=== PATIENT | female | born 1995 | race American Indian/Alaskan Native ===

== ENCOUNTER 2022-03-18 17:11 | Emergency (ER) | payer OTHER, MEDICAID ==
[2022-03-18 17:55] VITALS: BP 120/64
[2022-03-18] MEDS ORDERED: CYCLOBENZAPRINE 10 MG TAB PO ONE (19:49)
[2022-03-18] MEDS ORDERED: ACETAMINOPHEN 500 MG TAB PO ONE (19:49)
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
[2022-03-18 21:11] LABS: Bilirubin,Urine NEG (Negative); Blood,Urine NEG (Negative); Color,Urine Straw (Yellow); PH,Urine 7.5 (5.0-7.0); Protein,Urine <15 mg/dL mg/dL (Negative)
[2022-03-18 21:12] LABS: Urobilinogen,Urine < 2.0 mg/dL (<2.0)
== END 2022-03-18 21:28 | disposition home or self-care (01) ==
LOC: ED 17:11
DX: O26.891 Other specified pregnancy related conditions, first trimester (principal); S39.012A Strain of muscle, fascia and tendon of lower back, initial encounter; M62.830 Muscle spasm of back; Z3A.01 Less than 8 weeks gestation of pregnancy; V89.2XXA Person injured in unspecified motor-vehicle accident, traffic, initial encounter; Y93.89 Activity, other specified; Y92.89 Other specified places as the place of occurrence of the external cause; Y99.8 Other external cause status
CPT/HCPCS: 36415; 81001; 84702; 99283

== ENCOUNTER 2022-03-30 21:14 | Emergency (ER) | payer MEDICAID, OTHER ==
[2022-03-30 22:44] VITALS: BP 116/72
[2022-03-31 01:38] LABS: Basophils % (Auto) 0.8 % (0.0-1.8); Eosinophils # (Auto) 0.1 K/mm3 (0.0-0.4); Eosinophils % (Auto) 1.9 % (0.0-4.3); Hematocrit 38.7 % (30.3-42.9); Hemoglobin 12.7 gm/dl (10.1-14.3); Lymphocytes # (Auto) 1.9 K/mm3 (1.2-5.4); Lymphocytes % (Auto) 32.8 % (13.4-35.0); Mean Corpuscular HGB Conc 33 % (30-34); Mean Corpuscular Volume 88 fl (79-97); Monocytes # (Auto) 0.6 K/mm3 (0.0-0.8); Monocytes % (Auto) 10.5 % (0.0-7.3); Platelet Count 210 K/mm3 (140-440); Red Blood Count 4.42 M/mm3 (3.65-5.03); Red Cell Distribution Width 11.6 % (13.2-15.2)
[2022-03-31 02:01] LABS: Alanine Aminotransferase 10 units/L (7-56); Albumin 4.4 g/dL (3.9-5); Blood Urea Nitrogen 11 mg/dL (7-17); Calcium 9.8 mg/dL (8.4-10.2); Hemolysis Index 1
[2022-03-31 02:21] LABS: BUN/Creatinine Ratio 16
[2022-03-31 02:39] LABS: Bilirubin,Urine NEG (Negative); Blood,Urine NEG (Negative); Color,Urine Yellow (Yellow); Urobilinogen,Urine < 2.0 mg/dL (<2.0)
[2022-03-31 02:41] LABS: Mucus,Urine 3+ /HPF
[2022-03-31] MEDS ORDERED: METOCLOPRAMIDE 10 MG/2 ML INJ IV ONE (05:07)
[2022-03-31] MEDS ORDERED: SODIUM CHLORIDE 0.9% 1000 ML 1,000 ML IV ONE (05:07)
[2022-03-31] MEDS ORDERED: diphenhydrAMINE 50 MG/ML VIAL IV ONE (05:07)
--- NOTE | 2022-03-31 05:10 | Emergency Department Report ---
ED Abdominal Pain HPI - General Chief Complaint: Abdominal Pain Stated Complaint: VOMITING,PREG,ABD PAIN,DEHYDRATION Time Seen by Provider: 03/31/22 04:22 Source: patient Mode of arrival: Ambulatory Limitations: No Limitations - History of Present Illness Initial Comments: Patient is a 26-year-old female who is G2, currently 8 weeks who presents for abdominal cramping and nausea vomiting. Patient states she has not seen PROJECT MANAGER/TEAM COACH this . Patient denies vaginal discharge or bleeding. Abdominal cramping this described as 4/10 bilateral lower abdominal cramping. There is no radiation there is no dysuria frequency or urgency. Nausea and vomiting during first trimester is normal for this patient. Current symptoms are relieved by nothing tried. Symptoms are exacerbated by p.o. intake. MD Complaint: abdominal pain - Related Data Home Medications Medication Instructions Recorded Confirmed Last Taken Pnv,Calcium 72/Iron/Folic Acid 1 tab PO DAILY 02/17/15 02/17/15 02/17/15 16:00 [ Vitamin with Low Iron] 1 tab Previous Rx's Medication Instructions Recorded Last Taken Type Acetaminophen [Tylenol] 500 mg PO Q6HR PRN #40 tablet 03/18/22 Unknown Rx Baclofen [Lioresal] 10 mg PO TID #21 tab 03/18/22 Unknown Rx Metoclopramide [Reglan] 10 mg PO TID PRN #30 tab 03/31/22 Unknown Rx diphenhydrAMINE [Benadryl CAP] 25 mg PO Q8HR PRN #30 capsule 03/31/22 Unknown Rx Allergies Allergy/AdvReac Type Severity Reaction Status Date / Time No Known Allergies Allergy Verified 01/08/15 11:06 ED Review of Systems ROS: Stated complaint: VOMITING,PREG,ABD PAIN,DEHYDRATION Other details as noted in HPI Constitutional: denies: chills, fever Eyes: denies: eye pain, eye discharge, vision change ENT: denies: ear pain, throat pain Respiratory: denies: cough, shortness of breath, wheezing Cardiovascular: denies: chest pain, palpitations Endocrine: no symptoms reported Gastrointestinal: abdominal pain, nausea, vomiting. denies: diarrhea, constipation, melena Genitourinary: as per HPI. denies: urgency, dysuria, frequency, hematuria Musculoskeletal: denies: back pain, joint swelling, arthralgia Skin: denies: rash, lesions Neurological: denies: headache, weakness, paresthesias, vertigo Psychiatric: denies: anxiety, depression Hematological/Lymphatic: denies: easy bleeding ED Past Medical Hx - Past Medical History Hx Hypertension: No Hx Congestive Heart Failure: No Hx Diabetes: No Hx Deep Vein Thrombosis: No Hx Renal Disease: No Hx Sickle Cell Disease: No Hx Seizures: No Hx Asthma: Yes (last attack 4 months ago) Hx COPD: No Hx HIV: No - Social History Smoking Status: Never Smoker - Medications Home Medications: Home Medications Medication Instructions Recorded Confirmed Last Taken Type Pnv,Calcium 72/Iron/Folic Acid 1 tab PO DAILY 02/17/15 02/17/15 02/17/15 16:00 History [ Vitamin with Low Iron] 1 tab Acetaminophen [Tylenol] 500 mg PO Q6HR PRN #40 tablet 03/18/22 Unknown Rx Baclofen [Lioresal] 10 mg PO TID #21 tab 03/18/22 Unknown Rx Metoclopramide [Reglan] 10 mg PO TID PRN #30 tab 03/31/22 Unknown Rx diphenhydrAMINE [Benadryl CAP] 25 mg PO Q8HR PRN #30 capsule 03/31/22 Unknown Rx ED Physical Exam - General Limitations: No Limitations General appearance: alert, in no apparent distress - Head Head exam: Present: atraumatic, normocephalic - Eye Eye exam: Present: normal appearance, EOMI Pupils: Present: normal accommodation - ENT ENT exam: Present: normal exam, mucous membranes dry - Neck Neck exam: Present: normal inspection - Respiratory Respiratory exam: Present: normal lung sounds bilaterally. Absent: respiratory distress, wheezes, stridor - Cardiovascular Cardiovascular Exam: Present: regular rate, normal rhythm. Absent: systolic murmur, diastolic murmur, rubs, gallop - GI/Abdominal GI/Abdominal exam: Present: soft, normal bowel sounds. Absent: distended, tenderness, guarding, rebound, rigid, pulsatile mass, hernia - Rectal Rectal exam: Present: deferred - Extremities Exam Extremities exam: Present: normal inspection, full ROM, normal capillary refill ED Course Vital Signs 03/30/22 21:37 Temperature 99.3 F Pulse Rate 81 Respiratory 18 Rate Blood Pressure 116/72 O2 Sat by Pulse 100 Oximetry ED Medical Decision Making - Lab Data Result diagrams: 03/30/22 23:12 03/30/22 23:12 Labs 03/30/22 03/30/22 03/30/22 23:12 23:12 23:12 WBC 5.9 RBC 4.42 Hgb 12.7 Hct 38.7 MCV 88 MCH 29 MCHC 33 RDW 11.6 L Plt Count 210 Lymph % (Auto) 32.8 [place] % (Auto) 10.5 H Eos % (Auto) 1.9 Baso % (Auto) 0.8 Lymph # (Auto) 1.9 [place] # (Auto) 0.6 Eos # (Auto) 0.1 Baso # (Auto) 0.0 Seg Neutrophils % 54.0 Seg Neutrophils # 3.2 Sodium 135 L Potassium 3.9 Chloride 101.6 Carbon Dioxide 23 Anion Gap 14 BUN 11 Creatinine 0.7 Estimated GFR > 60 BUN/Creatinine Ratio 16 Glucose 81 Calcium 9.8 Total Bilirubin 0.30 AST 13 ALT 10 Alkaline Phosphatase 48 Total Protein 7.4 Albumin 4.4 Albumin/Globulin Ratio 1.5 HCG, Quant 71463 H Urine Color Urine Turbidity Urine pH Ur Specific [place] Urine Protein Urine Glucose (UA) Urine Ketones Urine Blood Urine Nitrite Urine Bilirubin Urine Urobilinogen Ur Leukocyte Esterase Urine WBC (Auto) Urine RBC (Auto) U Epithel Cells (Auto) Urine Mucus 03/31/22 02:28 WBC RBC Hgb Hct MCV MCH MCHC RDW Plt Count Lymph % (Auto) [place] % (Auto) Eos % (Auto) Baso % (Auto) Lymph # (Auto) [place] # (Auto) Eos # (Auto) Baso # (Auto) Seg Neutrophils % Seg Neutrophils # Sodium Potassium Chloride Carbon Dioxide Anion Gap BUN Creatinine Estimated GFR BUN/Creatinine Ratio Glucose Calcium Total Bilirubin AST ALT Alkaline Phosphatase Total Protein Albumin Albumin/Globulin Ratio HCG, Quant Urine Color Yellow Urine Turbidity Clear Urine pH 6.0 Ur Specific [place] 1.030 Urine Protein 30 mg/dl Urine Glucose (UA) Neg Urine Ketones 80 Urine Blood Neg Urine Nitrite Neg Urine Bilirubin Neg Urine Urobilinogen < 2.0 Ur Leukocyte Esterase Neg Urine WBC (Auto) 4.0 Urine RBC (Auto) 2.0 U Epithel Cells (Auto) 9.0 Urine Mucus 3+ - Radiology Data Radiology results: report reviewed, image reviewed Ultrasound OB single live IUP 10 weeks and 1 day, heart rate is 181 bpm. - Medical Decision Making ultrasound OB single live IUP 10 weeks and 1 day, heart rate is 181 bpm, nausea vomiting is improved. Patient tolerating p.o. intake. Plan DC to home, follow-up with PROJECT MANAGER/TEAM COACH in 1 to 2 days. Return to emergency department should symptoms worsen. Patient verbalized agreement and understanding with discharge plan. Patient DC'd home in stable condition at this time. Critical care attestation.: If time is entered above; I have spent that time in minutes in the direct care of this critically ill patient, excluding procedure time. ED Disposition Clinical Impression: Nausea and vomiting during prior to 22 weeks gestation Disposition: HOME / SELF CARE / HOMELESS Is pt being admited?: No Does the pt Need Aspirin: No Condition: Stable Instructions: Abdominal Pain (ED), Nausea and Vomiting, Adult, [id number], Abdominal Pain During , [id number] Additional Instructions: Take medications as prescribed, follow-up with your PROJECT MANAGER/TEAM COACH in 1 to 2 days. Continue to hydrate as directed. Return to emergency department should symptoms worsen. Prescriptions: diphenhydrAMINE [Benadryl CAP] 25 mg PO Q8HR PRN #30 capsule PRN Reason: Nausea Metoclopramide [Reglan] 10 mg PO TID PRN #30 tab PRN Reason: Nausea Referrals: LYN ACHARYA MD [Staff Physician] - 3-5 Days Forms: Work/School Release Form(ED) Time of Disposition: 06:18
--- NOTE | 2022-03-31 06:11 | Ultrasound Report ---
US OB <= 14 weeks fetus INDICATION / CLINICAL INFORMATION: abd pain pos preg quantitative beta-hCG of 10,000. COMPARISON: None available. TECHNIQUE: Using a transcutaneous probe, multiple grayscale, color Doppler, and spectral Doppler imag es of the uterus and fetus were captured and stored. FINDINGS: The uterus measures 10.9 x 5.5 x 7.1 cm. A single intrauterine gestational sac is present containing pole and yolk sac. Based on crown-rump length mean of 32.5 mm, the estimated gestational age is 10 weeks 1 day. EDC 10/26/2022. Clinical is a gestational age based on LMP of January 2022 is 10 weeks 5 days. heart rate is 183 bpm. motion is present. The right ovary measures 4.1 x 2.5 x 2.4 cm and appears within normal limits. Left ovary not identified. Urinary bladder not well distended. IMPRESSION: 1. Single living intrauterine gestation at approximately 10 weeks 1 day. Signer Name: Flavio Marcelino II, MD Signed: 03/31/2022 6:07 AM Workstation Name: [id number]
== END 2022-03-31 07:03 | disposition home or self-care (01) ==
LOC: ED 21:14
DX: O21.9 Vomiting of pregnancy, unspecified (principal); Z3A.08 8 weeks gestation of pregnancy; Z79.899 Other long term (current) drug therapy
CPT/HCPCS: 36415; 76801; 80053; 81001; 84702; 85025; 96361; 96374; 96375; 99284; J1200; J2765; J7030

== ENCOUNTER 2022-04-27 16:00 | Emergency (ER) | payer MEDICAID ==
[2022-04-27 16:08] VITALS: BP 138/65
== END 2022-04-27 19:00 | disposition left against medical advice (07) ==
LOC: ED 16:00
DX: O26.891 Other specified pregnancy related conditions, first trimester (principal); R51.9 Headache, unspecified; Z3A.14 14 weeks gestation of pregnancy